=== PATIENT | female | born 1995 | race Caucasian/White ===

== ENCOUNTER 2016-11-28 15:05 | Emergency (ER) | payer SELFPAY ==
[~2016-11-28 15:05] MED LIST: BACT800T5 PO
[2016-11-28 15:07] VITALS: BP 116/80; PULSE 80; RESP 12; TEMP 98.4; O2SAT 95
[2016-11-28 17:06] VITALS: BP 113/61; PULSE 67; RESP 16; O2SAT 99
--- NOTE | 2016-11-28 17:06 | PD ---
HPI Chief Complaint: GI Complaint Time Seen by Provider: 17:05 Travel History International Travel<30 days: No Contact w/Intl Traveler<30days: No Traveled to known affect area: No History of Present Illness HPI 21-year-old female presents to the ED for evaluation of 3 day history of malaise , subjective fevers, sinus congestion, sore throat, nonproductive cough, nausea , vomiting, lower abdominal pain, diarrhea and back pain. Onset gradual. She endorses "too many to count" episodes of vomiting. She denies hematemesis, hematochezia, melena. Patient denies dysuria, hematuria, vaginal discharge. Last menstrual period 11/03. Patient denies risk of . She's been treating with NyQuil with only minor improvement of symptoms. She denies chronic health problems, takes no daily medications. NKDA. PFSH Past Medical History Asthma: Yes Diminished Hearing: No Immunizations Current: Yes Tetanus Vaccination: < 5 Years Influenza Vaccination: No ?: Not LMP: 11/03/16 : 1 Para: 0 Miscarriage: 0 : 1 Social History Alcohol Use: No Tobacco Use: Yes (3 CIGARRETTE PER DAY ) Substance Use: No Allergies-Medications (Allergen,Severity, Reaction): Coded Allergies: Bee Sting (Verified Allergy, Severe, ANAPHYLAXIS, 11/28/16) anaphylaxis Bees (Verified Allergy, Severe, THROAT SWELLS, 11/28/16) Gluten (Verified Allergy, Severe, THROAT SWELLS, 11/28/16) Wheat (Verified Allergy, Severe, AIRWAY ISSUES, 11/28/16) breathing probs Reported Meds & Prescriptions Reported Meds & Active Scripts Active No Active Prescriptions or Reported Medications Review of Systems Except as stated in HPI: all other systems reviewed are Neg Physical Exam Narrative GENERAL: Well-nourished, well-developed ill-appearing white female in no acute distress. SKIN: Warm and dry. HEAD: Normocephalic. Atraumatic. EYES: No scleral icterus. No injection or drainage. PERRLA. EOMI. ENT: Pearly deleon tympanic membranes bilaterally. Nasal mucosa is moist. Oropharynx without erythema, edema or exudate. NECK: Supple, trachea midline. No JVD or lymphadenopathy. CARDIOVASCULAR: Regular rate and rhythm without murmurs, gallops, or rubs. 2+ DP and radial pulses bilaterally. RESPIRATORY: Breath sounds clear and equal bilaterally. No accessory muscle use. GASTROINTESTINAL: Abdomen soft, non-tender. + Bowel sounds . Mild suprapubic tenderness to palpation. GENITOURINARY: Normal external genitalia without lesions or erythema. Vaginal vault without blood or drainage. Cervical os was closed without drainage. No cervical motion tenderness. Uterus nontender and nonenlarged. Right-sided adnexa mildly tender. No palpable masses. MUSCULOSKELETAL: No cyanosis, or edema. The patient is ambulatory and moves the extremities spontaneously. BACK: Nontender without obvious deformity. + Bilateral CVA tenderness, right greater than left. Data Data Last Documented VS Vital Signs Date Time Temp Pulse Resp B/P Pulse Ox O2 Delivery O2 Flow Rate FiO2 11/28/16 17:30 17 99 Room Air 11/28/16 17:06 67 113/61 11/28/16 15:07 98.4 Orders Complete Blood Count With Diff (11/28/16 17:27) Comprehensive Metabolic Panel (11/28/16 17:27) Lipase (11/28/16 17:27) Urinalysis - C+S If Indicated (11/28/16 17:27) Iv Access Insert/Monitor (11/28/16 17:27) Ecg Monitoring (11/28/16 17:27) Oximetry (11/28/16 17:27) Ondansetron Inj (Zofran Inj) (11/28/16 17:30) Sodium Chlor 0.9% 1000 Ml Inj (Ns 1000 M (11/28/16 17:27) Sodium Chloride 0.9% Flush (Ns Flush) (11/28/16 17:30) Ed Urine Pregnancytest Poc (11/28/16 17:27) Influenzae A/B Antigen (11/28/16 17:27) Beta Hcg (Quant/Titer) (11/28/16 17:56) Us Pelvis (Ques Pr/Ect)W Trans (11/28/16 18:09) Complete Rh (11/28/16 19:58) Labs Laboratory Tests Test 11/28/16 11/28/16 15:38 17:30 White Blood Count 7.0 TH/MM3 Red Blood Count 4.92 MIL/MM3 Hemoglobin 12.0 GM/DL Hematocrit 37.1 % Mean Corpuscular Volume 75.5 FL Mean Corpuscular Hemoglobin 24.4 PG Mean Corpuscular Hemoglobin 32.4 % Concent Red Cell Distribution Width 18.8 % Platelet Count 237 TH/MM3 Mean Platelet Volume 8.5 FL Neutrophils (%) (Auto) 50.3 % Lymphocytes (%) (Auto) 36.7 % Monocytes (%) (Auto) 9.9 % Eosinophils (%) (Auto) 2.7 % Basophils (%) (Auto) 0.4 % Neutrophils # (Auto) 3.5 TH/MM3 Lymphocytes # (Auto) 2.6 TH/MM3 Monocytes # (Auto) 0.7 TH/MM3 Eosinophils # (Auto) 0.2 TH/MM3 Basophils # (Auto) 0.0 TH/MM3 CBC Comment DIFF FINAL Differential Comment Sodium Level 137 MEQ/L Potassium Level 4.2 MEQ/L Chloride Level 104 MEQ/L Carbon Dioxide Level 26.1 MEQ/L Anion Gap 7 MEQ/L Blood Urea Nitrogen 13 MG/DL Creatinine 0.62 MG/DL Estimat Glomerular Filtration 119 ML/MIN Rate Random Glucose 85 MG/DL Calcium Level 8.6 MG/DL Total Bilirubin 0.4 MG/DL Aspartate Amino Transf 12 U/L (AST/SGOT) Alanine Aminotransferase 19 U/L (ALT/SGPT) Alkaline Phosphatase 58 U/L Total Protein 8.1 GM/DL Albumin 3.7 GM/DL Lipase 125 U/L Human Chorionic Gonadotropin, 403 MIU/ML Quant Urine Color YELLOW Urine Turbidity HAZY Urine pH 6.0 Urine Specific [place] 1.029 Urine Protein TRACE mg/dL Urine Glucose (UA) NEG mg/dL Urine Ketones NEG mg/dL Urine Occult Blood NEG Urine Nitrite NEG Urine Bilirubin NEG Urine Urobilinogen LESS THAN 2.0 MG/DL Urine Leukocyte Esterase SMALL Urine RBC 10 /hpf Urine WBC 5 /hpf Urine Squamous Epithelial 10 /hpf Cells Urine Mucus MANY /lpf Microscopic Urinalysis Comment CULT NOT INDICATED MDM Medical Decision Making Medical Screen Exam Complete: Yes Emergency Medical Condition: Yes Differential Diagnosis Influenza versus viral syndrome versus gastroenteritis versus versus ectopic versus STI versus other Narrative Course 21-year-old female presents to the ED for evaluation of 3 day history of malaise , subjective fevers, sinus congestion, sore throat, nonproductive cough, nausea , vomiting, lower abdominal pain, diarrhea and back pain. Onset gradual. She endorses "too many to count" episodes of vomiting. She denies hematemesis, hematochezia, melena. Patient denies dysuria, hematuria, vaginal discharge. Last menstrual period 11/03. Patient denies risk of . Vitals reviewed and within normal limits. Physical exam reveals an ill-appearing white female in no acute distress. ENT exam is unremarkable. Chest is clear to auscultation bilaterally. Abdomen soft, tender to palpation in the suprapubic region. There is positive bilateral CVA tenderness, right greater than left. No blood in the vaginal vault. No cervical motion tenderness. Mild right- sided adnexal tenderness. Patient was placed on continuous monitoring. She was administered a liter of normal saline, IV Zofran. CBC: WBC 7.0. Hemoglobin 12.0. CMP: Unremarkable Lipase: 125 Influenza: Negative UA: No culture indicated Urine test POSITIVE. Beta hC Transvaginal ultrasound: 1. No IUP seen. 2. 2 cm complex cystic mass the left ovary. This is nonspecific. It could be a prominent follicle or a corpus luteal cyst. An ectopic cannot be excluded. Close followup is recommended. On recheck the patient states that her nausea has resolved. Patient states that she thinks her blood type is O+. Rh ordered and pending. I discussed the results of the workup with the patient. I explained to the patient that she has a very early , too early to confirm that it is inside the uterus. I counseled her that ectopic can be life-threatening. I instructed the patient to return to the ED in 2 days for repeat hCG and ultrasound, sooner if her abdominal pain worsens or if vaginal bleeding occurs. I provided the patient with an excuse for work so that she may return for repeat testing. She indicated understanding of the instructions, she is amenable to plan of care. She is stable and discharged home. Diagnosis Primary Impression: at early stage Referrals: Foster Leger MD Patient Instructions: Abdominal Pain in (ED), General Instructions Additional Instructions: Rest, hydrate. Eat small meals at regular intervals. You are in the very early stages of . Establish care with a training program assistant as soon as possible. Return to the ED in 2 days for redraw of labs and ultrasound. Return sooner if your abdominal pain increases or if you have vaginal spotting of bleeding. Scripts No Active Prescriptions or Reported Meds Disposition: DISCHARGE HOME Condition: Stable Karla Anderson Nov 28, 2016 17:06
[2016-11-28] MEDS ORDERED: SODIUM CHLOR 0.9% 1000 ML INJ 1,000 ML IV SCH (17:27)
[2016-11-28 17:30] VITALS: RESP 17; O2SAT 99
[2016-11-28] MEDS ORDERED: ONDANSETRON HCL 4 MG/2 ML VIAL IVP ONE (17:30)
[2016-11-28] MEDS ORDERED: SODIUM CHLORIDE 0.9% FLUSH 5 ML FLUSH IVF PRN (17:30)
[2016-11-28 17:54] LABS: AUTOMATED NEUTROPHIL # 3.5 TH/MM3 (1.8-7.7); BASOPHIL % 0.4 % (0.0-2.0); EOSINOPHIL # 0.2 TH/MM3 (0-0.4); EOSINOPHIL % 2.7 % (0.0-4.0); HEMATOCRIT 37.1 % (35.0-46.0); LYMPH % 36.7 % (9.0-44.0); LYMPHOCYTE # 2.6 TH/MM3 (1.0-4.8); MEAN CELL VOLUME 75.5 FL (80.0-100.0); MEAN CORPUSCULAR HEMOGLOBIN 24.4 PG (27.0-34.0); MEAN CORPUSCULAR HGB CONC 32.4 % (32.0-36.0); MONO % 9.9 % (0.0-8.0); NEUT % 50.3 % (16.0-70.0); PLATELET COUNT 237 TH/MM3 (150-450); RED BLOOD COUNT 4.92 MIL/MM3 (4.00-5.30); RED CELL DISTRIBUTION WIDTH 18.8 % (11.6-17.2)
[2016-11-28 17:56] LABS: HEMO FLAGS DIFF FINAL
[2016-11-28 17:59] LABS: BLOOD, URINE NEG (NEG); COMMENT (UR) CULT NOT INDICATED; CULTURE IF INDICATED CULT NOT INDICATED; GLUCOSE,URINE NEG (NEG); KETONE, URINE NEG (NEG); MUCUS URINE MANY /lpf (OCC); NITRITE,URINE NEG (NEG); SQUAMOUS EPITHELIAL CELL URINE 10 /hpf (0-5); URINE COLOR YELLOW (YELLW/STRAW)
[2016-11-28 18:21] LABS: ANION GAP 7 MEQ/L (5-15); AST (GOT) 12 U/L (15-37); BICARBONATE 26.1 MEQ/L (21.0-32.0); BLOOD UREA NITROGEN 13 MG/DL (7-18); CHLORIDE 104 MEQ/L (98-107); GLOMERULAR FILTRATION RATE 119 ML/MIN (>89); POTASSIUM 4.2 MEQ/L (3.5-5.1); SODIUM (NA) 137 MEQ/L (136-145)
[2016-11-28 18:24] LABS: ALKALINE PHOSPHATASE 58 U/L (45-117); ALT (GPT) 19 U/L (10-53); TOTAL BILIRUBIN ADULT 0.4 MG/DL (0.2-1.0)
[2016-11-28 19:05] LABS: BETA HCG QUANT 403 MIU/ML (0-5)
--- NOTE | 2016-11-28 19:51 | RADRPT ---
EXAM DATE/TIME: 11/28/2016 18:12 [facility] COMPARISON: No previous studies available for comparison. INDICATIONS : Vomiting. LAB(S): Beta-hC MEDICAL HISTORY : . History of chlamydia. Asthma. Headache. Vomiting. SURGICAL HISTORY : None. ENCOUNTER: Subsequent ACUITY: 1 day PAIN SCORE: 0/10 LOCATION: Bilateral pelvis MEASUREMENTS: UTERUS: 8.0 x 4.3 x cm ENDOMETRIAL STRIPE: 20 mm RIGHT OVARY: 3.8 x 1.9 x 1.9 cm LEFT OVARY: 3.6 x 2.4 x 3.4 cm FINDINGS: UTERUS: The myometrium has homogeneous echotexture without mass. The endometrium appears thickened. No IUP i s seen. RIGHT OVARY: Ovary contains no mass or significant cystic lesion. LEFT OVARY: There is a 1.8 x 2.0 x 1.4 cm complex predominantly cystic mass seen. MISCELLANEOUS: There is minimal free fluid. CONCLUSION: 1. No IUP seen. 2. 2 cm complex cystic mass the left ovary. This is nonspecific. It could be a prominent follicle or a corpus luteal cyst. An ectopic cannot be excluded. Close Followup is recommended. South Jiang MD on November 28, 2016 at 19:47 Board Certified Radiologist. This report was verified electronically.
[2016-11-28 20:20] VITALS: BP 118/78
== END 2016-11-28 20:24 | disposition home or self-care (01) ==
LOC: NEPE 15:05
DX: O26.891 Other specified pregnancy related conditions, first trimester (principal); R10.30 Lower abdominal pain, unspecified; R19.7 Diarrhea, unspecified; J02.9 Acute pharyngitis, unspecified; Z3A.00 Weeks of gestation of pregnancy not specified
CPT/HCPCS: 76700; 76817; 80053; 81001; 83690; 84702; 84703; 85025; 86901; 87804; 96361; 96374; 99284; J2405; J7030

== ENCOUNTER 2016-11-30 14:57 | Emergency (ER) | payer SELFPAY ==
[2016-11-30 14:58] VITALS: BP 105/62; PULSE 87; RESP 14; TEMP 98.4; O2SAT 98
[2016-11-30 16:16] LABS: AUTOMATED NEUTROPHIL # 3.4 TH/MM3 (1.8-7.7); BASOPHIL % 0.4 % (0.0-2.0); EOSINOPHIL # 0.2 TH/MM3 (0-0.4); EOSINOPHIL % 2.8 % (0.0-4.0); HEMATOCRIT 37.1 % (35.0-46.0); LYMPH % 37.2 % (9.0-44.0); LYMPHOCYTE # 2.6 TH/MM3 (1.0-4.8); MEAN CELL VOLUME 75.5 FL (80.0-100.0); MEAN CORPUSCULAR HEMOGLOBIN 25.1 PG (27.0-34.0); MEAN CORPUSCULAR HGB CONC 33.2 % (32.0-36.0); MONO % 9.7 % (0.0-8.0); NEUT % 49.9 % (16.0-70.0); PLATELET COUNT 251 TH/MM3 (150-450); RED BLOOD COUNT 4.92 MIL/MM3 (4.00-5.30); RED CELL DISTRIBUTION WIDTH 18.5 % (11.6-17.2); WHITE BLOOD COUNT 6.9 TH/MM3 (4.0-11.0)
[2016-11-30 16:17] LABS: HEMO FLAGS AUTO DIFF
[2016-11-30 16:21] LABS: BLOOD, URINE NEG (NEG); COMMENT (UR) CULT NOT INDICATED; CULTURE IF INDICATED CULT NOT INDICATED; GLUCOSE,URINE NEG (NEG); KETONE, URINE NEG (NEG); NITRITE,URINE NEG (NEG); PH, URINE 6.5 (5.0-8.5); SQUAMOUS EPITHELIAL CELL URINE 5 /hpf (0-5); URINE COLOR YELLOW (YELLW/STRAW)
[2016-11-30 16:35] LABS: ANION GAP 8 MEQ/L (5-15); AST (GOT) 13 U/L (15-37); BICARBONATE 24.1 MEQ/L (21.0-32.0); BLOOD UREA NITROGEN 11 MG/DL (7-18); CHLORIDE 102 MEQ/L (98-107); GLOMERULAR FILTRATION RATE 92 ML/MIN (>89); POTASSIUM 4.5 MEQ/L (3.5-5.1); SODIUM (NA) 134 MEQ/L (136-145)
[2016-11-30 16:53] LABS: ALKALINE PHOSPHATASE 61 U/L (45-117); ALT (GPT) 18 U/L (10-53); BETA HCG QUANT 925 MIU/ML (0-5); TOTAL BILIRUBIN ADULT 0.3 MG/DL (0.2-1.0)
[2016-11-30 16:55] LABS: SCAN/DIFF AUTO DIFF CONFIRMED
[2016-11-30 16:56] LABS: OVALOCYTES 1+ (NORMAL); PLATELET ESTIMATE SMEAR NORMAL (NORMAL); PLATELET MORPHOLOGY NORMAL (NORMAL)
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
[2016-11-30 23:09] LABS: CHLAMYDIA PCR NOT DETECTED (NOT DETECT); NEISSERIA PCR NOT DETECTED (NOT DETECT)
== END 2016-12-01 02:06 | disposition home or self-care (01) ==
LOC: NETRI 14:57
DX: O26.891 Other specified pregnancy related conditions, first trimester (principal); Z3A.00 Weeks of gestation of pregnancy not specified
CPT/HCPCS: 76700; 76817; 80053; 81001; 84702; 85025; 86850; 86900; 86901; 87210; 87491; 87591

== ENCOUNTER 2017-05-30 07:55 | Emergency (ER) | payer SELFPAY ==
[2017-05-30 08:00] VITALS: BP 118/91; PULSE 76; RESP 16; TEMP 98.4; O2SAT 97
[2017-05-30] MEDS ORDERED: SODIUM CHLOR 0.9% 1000 ML INJ 1,000 ML IV ONE (08:07)
[2017-05-30 08:10] VITALS: O2SAT 98
[2017-05-30] MEDS ORDERED: METOCLOPRAMIDE HCL 10 MG/2 ML VIAL IVP ONE (08:15)
[2017-05-30] MEDS ORDERED: diphenhydrAMINE HCL 50 MG/ML VIAL IVP ONE (08:15)
[2017-05-30] MEDS ORDERED: SODIUM CHLORIDE 0.9% FLUSH 10 ML FLUSH IVF PRN (08:15)
--- NOTE | 2017-05-30 08:15 | PD ---
HPI Chief Complaint: Syncope/Near-Syncope Time Seen by Provider: 08:07 Travel History International Travel<30 days: No Contact w/Intl Traveler<30days: No Traveled to known affect area: No History of Present Illness HPI 22-year-old female with history of no significant past medical issues, presents to the ER today because of headaches that have been going on for several days, nausea, dizziness for the past week. She states that her headache is currently a 4 out of 10 but she states that she has had history of previous migraines. She denies any fevers, abdominal pains, diarrhea, or any other symptoms. She states that she did not eat anything today, did not drink very much today and when she got to work had a headache, became dizzy, and had a syncopal episode. She denies any previous history of syncopal episodes. Patient apparently had bradycardia rate of 30 when EMS initially got there, they had given her dose of atropine. Modifying Factors: None Associated Signs & Symptoms: Headaches, dizziness, syncope Risk Factors: History of migraine headaches PFSH Past Medical History Asthma: Yes Diminished Hearing: No Respiratory: Yes Immunizations Current: Yes ?: Not : 1 Para: 0 Miscarriage: 0 : 1 Social History Alcohol Use: No Tobacco Use: Yes (3 CIGARRETTE PER DAY ) Substance Use: No Allergies-Medications (Allergen,Severity, Reaction): Coded Allergies: bee venom protein (honey bee) (Unverified Allergy, Severe, ANAPHYLAXIS, ) anaphylaxis gluten (Unverified Allergy, Severe, THROAT SWELLS, 05/30/17) wheat (Unverified Allergy, Severe, AIRWAY ISSUES, 05/30/17) breathing probs Reported Meds & Prescriptions Reported Meds & Active Scripts Active No Active Prescriptions or Reported Medications Review of Systems Except as stated in HPI: all other systems reviewed are Neg Physical Exam Narrative GENERAL: Well-developed young white female patient currently in mild distress. Awake and oriented 3. SKIN: Focused skin assessment warm/dry. HEAD: Atraumatic. Normocephalic. EYES: Pupils equal and round. No scleral icterus. No injection or drainage. ENT: No nasal bleeding or discharge. Mucous membranes pink and moist. NECK: Trachea midline. No JVD. CARDIOVASCULAR: Regular rate and rhythm. No murmur appreciated. RESPIRATORY: No accessory muscle use. Clear to auscultation. Breath sounds equal bilaterally. GASTROINTESTINAL: Abdomen soft, non-tender, nondistended. Hepatic and splenic margins not palpable. MUSCULOSKELETAL: No obvious deformities. No clubbing. No cyanosis. No edema. NEUROLOGICAL: Awake and alert. No obvious cranial nerve deficits. Motor grossly within normal limits. Normal speech. PSYCHIATRIC: Appropriate mood and affect; insight and judgment normal. Data Data Last Documented VS Vital Signs Date Time Temp Pulse Resp B/P Pulse Ox O2 Delivery O2 Flow Rate FiO2 05/30/17 08:10 98 Room Air 05/30/17 08:00 98.4 76 16 118/91 Orders Complete Blood Count With Diff (05/30/17 08:07) Comprehensive Metabolic Panel (05/30/17 08:07) Ecg Monitoring (05/30/17 08:07) Iv Access Insert/Monitor (05/30/17 08:07) Oximetry (05/30/17 08:07) Sodium Chloride 0.9% Flush (Ns Flush) (05/30/17 08:15) Diphenhydramine Inj (Benadryl Inj) (05/30/17 08:15) Metoclopramide Inj (Reglan Inj) (05/30/17 08:15) Sodium Chlor 0.9% 1000 Ml Inj (Ns 1000 M (05/30/17 08:07) Ed Urine Pregnancytest Poc (05/30/17 08:07) Mandatory Outpatient Referral (05/30/17 09:08) Labs Laboratory Tests Test 05/30/17 08:15 White Blood Count 4.3 TH/MM3 Red Blood Count 4.49 MIL/MM3 Hemoglobin 12.3 GM/DL Hematocrit 37.2 % Mean Corpuscular Volume 82.8 FL Mean Corpuscular Hemoglobin 27.4 PG Mean Corpuscular Hemoglobin 33.1 % Concent Red Cell Distribution Width 17.0 % Platelet Count 177 TH/MM3 Mean Platelet Volume 9.6 FL Neutrophils (%) (Auto) 38.9 % Lymphocytes (%) (Auto) 42.4 % Monocytes (%) (Auto) 11.8 % Eosinophils (%) (Auto) 6.3 % Basophils (%) (Auto) 0.6 % Neutrophils # (Auto) 1.7 TH/MM3 Lymphocytes # (Auto) 1.8 TH/MM3 Monocytes # (Auto) 0.5 TH/MM3 Eosinophils # (Auto) 0.3 TH/MM3 Basophils # (Auto) 0.0 TH/MM3 CBC Comment DIFF FINAL Differential Comment Sodium Level 140 MEQ/L Potassium Level 3.9 MEQ/L Chloride Level 107 MEQ/L Carbon Dioxide Level 27.1 MEQ/L Anion Gap 6 MEQ/L Blood Urea Nitrogen 13 MG/DL Creatinine 0.82 MG/DL Estimat Glomerular Filtration 86 ML/MIN Rate Random Glucose 94 MG/DL Calcium Level 8.0 MG/DL Total Bilirubin 0.6 MG/DL Aspartate Amino Transf 13 U/L (AST/SGOT) Alanine Aminotransferase 15 U/L (ALT/SGPT) Alkaline Phosphatase 54 U/L Total Protein 7.3 GM/DL Albumin 3.4 GM/DL MDM Medical Decision Making Medical Screen Exam Complete: Yes Emergency Medical Condition: Yes Medical Record Reviewed: Yes Interpretation(s) EKG shows normal sinus rhythm at a rate of 74 bpm with no acute ST elevations or depressions. There are no signs of significant QT prolongation. Laboratory Tests Test 05/30/17 08:15 Monocytes (%) (Auto) 11.8 % (0.0-8.0) Eosinophils (%) (Auto) 6.3 % (0.0-4.0) Neutrophils # (Auto) 1.7 TH/MM3 (1.8-7.7) Estimat Glomerular Filtration 86 ML/MIN (>89) Rate Calcium Level 8.0 MG/DL (8.5-10.1) Aspartate Amino Transf 13 U/L (15-37) (AST/SGOT) Differential Diagnosis Syncopehypoglycemia versus metabolic issues versus arrhythmias versus dehydration Narrative Course EKG did not show any signs of dysrhythmias. Lab work did not show significant metabolic issues. Patient's vital signs are stable in the ER. She is not . It appears that she had not eaten or drank anything today in his suspect that she may have some underlying dehydration. However, patient did have an episode of bradycardia with EMS. At this point, my plan would be to release the patient with close follow-up to cardiology with mandatory consult. Return for any worsening in symptoms as necessary. The plan has discussed with her and she states understanding. Diagnosis Primary Impression: Syncope Additional Impression: Bradycardia Scripts No Active Prescriptions or Reported Meds Disposition: 01 DISCHARGE HOME Condition: Stable Massimo Mahoney MD May 30, 2017 08:15
[2017-05-30 08:32] LABS: AUTOMATED NEUTROPHIL # 1.7 TH/MM3 (1.8-7.7); BASOPHIL % 0.6 % (0.0-2.0); EOSINOPHIL # 0.3 TH/MM3 (0-0.4); EOSINOPHIL % 6.3 % (0.0-4.0); HEMATOCRIT 37.2 % (35.0-46.0); HEMO FLAGS DIFF FINAL; LYMPH % 42.4 % (9.0-44.0); LYMPHOCYTE # 1.8 TH/MM3 (1.0-4.8); MEAN CELL VOLUME 82.8 FL (80.0-100.0); MEAN CORPUSCULAR HEMOGLOBIN 27.4 PG (27.0-34.0); MEAN CORPUSCULAR HGB CONC 33.1 % (32.0-36.0); MONO % 11.8 % (0.0-8.0); NEUT % 38.9 % (16.0-70.0); PLATELET COUNT 177 TH/MM3 (150-450); RED BLOOD COUNT 4.49 MIL/MM3 (4.00-5.30); WHITE BLOOD COUNT 4.3 TH/MM3 (4.0-11.0)
[2017-05-30 08:48] LABS: ALT (GPT) 15 U/L (10-53); ANION GAP 6 MEQ/L (5-15); AST (GOT) 13 U/L (15-37); BICARBONATE 27.1 MEQ/L (21.0-32.0); BLOOD UREA NITROGEN 13 MG/DL (7-18); CHLORIDE 107 MEQ/L (98-107); GLOMERULAR FILTRATION RATE 86 ML/MIN (>89); POTASSIUM 3.9 MEQ/L (3.5-5.1); SODIUM (NA) 140 MEQ/L (136-145)
[2017-05-30 08:50] LABS: ALKALINE PHOSPHATASE 54 U/L (45-117); TOTAL BILIRUBIN ADULT 0.6 MG/DL (0.2-1.0)
--- NOTE | 2017-05-30 14:46 | EKG ---
Date Performed: 05/30/2017 Time Performed: 08:13:53 PTAGE: 22 years EKG: Sinus rhythm NORMAL ECG NO PREVIOUS TRACING DOCTOR: Clinton Matson Interpretating Date/Time 05/30/2017 14:45:24
== END 2017-05-30 09:43 | disposition home or self-care (01) ==
LOC: NEPE 07:55
DX: R55 Syncope and collapse (principal); R00.1 Bradycardia, unspecified
CPT/HCPCS: 80053; 84703; 85025; 93005; 96361; 96374; 96375; 99284; J1200; J2765; J7030

== ENCOUNTER 2017-08-28 14:32 | Emergency (ER) | payer MEDICAID ==
[2017-08-28 14:35] VITALS: BP 118/67; PULSE 64; RESP 14; TEMP 98.3; O2SAT 100
[2017-08-28 15:41] LABS: AUTOMATED NEUTROPHIL # 4.7 TH/MM3 (1.8-7.7); BASOPHIL % 0.4 % (0.0-2.0); EOSINOPHIL # 0.3 TH/MM3 (0-0.4); EOSINOPHIL % 3.5 % (0.0-4.0); HEMATOCRIT 39.7 % (35.0-46.0); HEMO FLAGS DIFF FINAL; LYMPH % 31.6 % (9.0-44.0); LYMPHOCYTE # 2.6 TH/MM3 (1.0-4.8); MEAN CELL VOLUME 88.3 FL (80.0-100.0); MEAN CORPUSCULAR HEMOGLOBIN 29.5 PG (27.0-34.0); MEAN CORPUSCULAR HGB CONC 33.4 % (32.0-36.0); MONO % 8.2 % (0.0-8.0); NEUT % 56.3 % (16.0-70.0); PLATELET COUNT 225 TH/MM3 (150-450); RED BLOOD COUNT 4.49 MIL/MM3 (4.00-5.30); RED CELL DISTRIBUTION WIDTH 17.4 % (11.6-17.2); WHITE BLOOD COUNT 8.4 TH/MM3 (4.0-11.0)
[2017-08-28 15:56] LABS: BICARBONATE 25.1 MEQ/L (21.0-32.0)
[2017-08-28] MEDS ORDERED: FLINT2 CHEW (15:59)
--- NOTE | 2017-08-28 16:34 | PD ---
HPI Chief Complaint: Related Problem Time Seen by Provider: 16:33 Travel History International Travel<30 days: No Contact w/Intl Traveler<30days: No Traveled to known affect area: No History of Present Illness HPI 22-year-old female presents to emergency Department with complaint of abdominal cramping 3 weeks and vaginal bleeding that started today. Last menstrual period was sometime in June. Has had 2 positive home test. This is her fourth ; to light breath and one elective secondary to ectopic . Reports changing her pad every 3 hours. Denies abnormal vaginal discharge or odor. Denies fever, chills. Reports nausea with vomiting in the mornings. Denies dysuria. Reports abdominal cramping at 10/10. No known aggravating or relieving factors. Has not taken any medications or tried any treatments to alleviate her symptoms. History of asthma. Has not seen an bio medical technician and does not have one to follow-up with. No established primary care provider. Allergies to bees and whole wheat. Has no other medical complaints. No other modifying factors or associated signs and symptoms. PFSH Past Medical History Anemia: Yes Asthma: Yes Diminished Hearing: No Respiratory: Yes Immunizations Current: Yes ?: LMP: 06/2017 : 1 Para: 0 Miscarriage: 0 : 1 Dilation and Curettage (D&C): Yes Social History Alcohol Use: No Tobacco Use: Yes (3 CIGARETTE PER DAY ) Substance Use: Yes (marijuana) Allergies-Medications (Allergen,Severity, Reaction): Coded Allergies: bee venom protein (honey bee) (Unverified Allergy, Severe, ANAPHYLAXIS, ) anaphylaxis gluten (Unverified Allergy, Severe, THROAT SWELLS, 05/30/17) wheat (Unverified Allergy, Severe, AIRWAY ISSUES, 05/30/17) breathing probs Reported Meds & Prescriptions Reported Meds & Active Scripts Active Acyclovir 200 Mg Cap 200 Mg PO 5 TIMES A DAY 10 Days Reported Flintstones Complete (Iron/Minerals/Multivitamins) 60 Mg Tab 1 Tab CHEW DAILY Review of Systems Except as stated in HPI: all other systems reviewed are Neg Physical Exam Narrative GENERAL: Well-nourished, well-developed female female patient, in no acute distress; afebrile, nontoxic-appearing SKIN: Warm and dry. HEAD: Atraumatic. Normocephalic. EYES: Pupils equal and round. No scleral icterus. No injection or drainage. ENT: Mucous membranes pink and moist. NECK: Trachea midline. No lymphadenopathy. CARDIOVASCULAR: Regular rate and rhythm. No murmur appreciated. RESPIRATORY: No accessory muscle use. Clear to auscultation. Breath sounds equal bilaterally. GASTROINTESTINAL: Abdomen soft, non-tender, nondistended. Bilateral pelvic region tender to palpation. Hepatic and splenic margins not palpable. No guarding, rigidity, rebound tenderness. No groin lymphadenopathy. PELVIC: Exam done in the presence of a nurse. Speculum exam reveals edematous and erythematous cervix with creamy, white mucopurulent, nonodorous discharge. Bimanual exam reveals no palpable masses or adnexa tenderness, no uterine tenderness. No cervical motion tenderness. Cervical os is closed and there is no blood noted in the vaginal vault or coming from the cervical os. Erythemic, vesicular area noted to the right labia majora that is with tenderness on palpation. BACK: No CVA tenderness. MUSCULOSKELETAL: No obvious deformities. No clubbing. No cyanosis. No edema. NEUROLOGICAL: Awake and alert. No obvious cranial nerve deficits. Motor grossly within normal limits. Normal speech. PSYCHIATRIC: Appropriate mood and affect; insight and judgment normal. Data Data Last Documented VS Vital Signs Date Time Temp Pulse Resp B/P (MAP) Pulse Ox O2 Delivery O2 Flow Rate FiO2 08/28/17 14:35 98.3 64 14 118/67 (84) 100 Orders Orders Complete Blood Count With Diff (08/28/17 14:58) Basic Metabolic Panel (Bmp) (08/28/17 14:58) Beta Hcg (Quant/Titer) (08/28/17 14:58) Ed Urine Pregnancytest Poc (08/28/17 14:58) Urinalysis - C+S If Indicated (08/28/17 16:32) Gc And Chlamydia Pcr (08/28/17 16:37) Wet Prep Profile (08/28/17 16:37) Acetaminophen (Tylenol) (08/28/17 16:45) Heart Tones (08/28/17 17:16) Herpes Simplex Virus Culture (08/28/17 17:35) Ceftriaxone Inj (Rocephin Inj) (08/28/17 17:45) Lidocaine 1% Inj (50 Ml) (Xylocaine 1% I (08/28/17 17:45) Azithromycin (Zithromax) (08/28/17 17:45) Ondansetron Odt (Zofran Odt) (08/28/17 17:45) Ed Discharge Order (08/28/17 18:18) Labs Laboratory Tests Test 08/28/17 15:15 08/28/17 17:30 08/28/17 17:40 White Blood Count 8.4 TH/MM3 Red Blood Count 4.49 MIL/MM3 Hemoglobin 13.2 GM/DL Hematocrit 39.7 % Mean Corpuscular Volume 88.3 FL Mean Corpuscular Hemoglobin 29.5 PG Mean Corpuscular Hemoglobin Concent 33.4 % Red Cell Distribution Width 17.4 % Platelet Count 225 TH/MM3 Mean Platelet Volume 8.4 FL Neutrophils (%) (Auto) 56.3 % Lymphocytes (%) (Auto) 31.6 % Monocytes (%) (Auto) 8.2 % Eosinophils (%) (Auto) 3.5 % Basophils (%) (Auto) 0.4 % Neutrophils # (Auto) 4.7 TH/MM3 Lymphocytes # (Auto) 2.6 TH/MM3 Monocytes # (Auto) 0.7 TH/MM3 Eosinophils # (Auto) 0.3 TH/MM3 Basophils # (Auto) 0.0 TH/MM3 CBC Comment DIFF FINAL Differential Comment Blood Urea Nitrogen 7 MG/DL Creatinine 0.46 MG/DL Random Glucose 87 MG/DL Calcium Level 8.8 MG/DL Sodium Level 136 MEQ/L Potassium Level 4.0 MEQ/L Chloride Level 105 MEQ/L Carbon Dioxide Level 25.1 MEQ/L Anion Gap 6 MEQ/L Estimat Glomerular Filtration Rate 167 ML/MIN Human Chorionic Gonadotropin, Quant 25181 MIU/ML Clue Cells (Wet Prep) NONE SEEN Vaginal Trichomonas (Wet Prep) NONE SEEN Vaginal Yeast (Wet Prep) NONE SEEN Urine Color YELLOW Urine Turbidity HAZY Urine pH 6.5 Urine Specific [place] 1.025 Urine Protein TRACE mg/dL Urine Glucose (UA) NEG mg/dL Urine Ketones NEG mg/dL Urine Occult Blood NEG Urine Nitrite NEG Urine Bilirubin NEG Urine Urobilinogen LESS THAN 2.0 MG/DL Urine Leukocyte Esterase TRACE Urine RBC LESS THAN 1 /hpf Urine WBC 3 /hpf Urine Squamous Epithelial Cells 5 /hpf Urine Bacteria OCC /hpf Urine Mucus FEW /lpf Microscopic Urinalysis Comment CULT NOT INDICATED [facility] Medical Decision Making Medical Screen Exam Complete: Yes Emergency Medical Condition: Yes Medical Record Reviewed: Yes Differential Diagnosis Miscarriage, threatened miscarriage, ectopic Narrative Course 22-year-old female presents with complaint of abdominal cramping 3 weeks with vaginal bleeding today. 4th . 1635: CBC and BMP unremarkable. Beta hCG 19259. 1707: turfgrass technician says there is a viable, intrauterine that is greater than 13 weeks, so formal ultrasound was not completed. heart tones ordered. 1732: Pelvic exam reveals a erythematous and edematous cervix with mucopurulent nonodorous discharge. No cervical motion tenderness. Cervical os is closed and I did not notice any blood in the vaginal vault or coming from the cervical os. Patient is concerned of exposure to STI. She states her boyfriend does cheat on her. I also noted a small erythematous, vesicular patch to the right labia majora with concern of genital herpes. HSV swab ordered. The patient will be treated empirically with azithromycin and Rocephin. 1813: Clue cells, Trichomonas, vaginal yeast negative. Urinalysis without signs of infection. Chlamydia and gonorrhea pending. Acyclovir prescribed for home. Patient to return to the emergency department in 48 hours for repeat hCG recheck. Instructed patient to follow up with bio medical technician. Instructed patient to follow up with primary care provider. Patient verbalizes understanding and agreement with treatment plan. Patient is medically cleared and stable for discharge. Discussed reasons to return to the emergency department. Patient agrees with treatment plan. The patients vital signs are stable and the patient is stable for outpatient follow-up and treatment. Patient discharged home, stable and in no acute distress. Diagnosis Primary Impression: Threatened miscarriage Additional Impressions: Cervicitis Vaginal lesion Referrals: Mechanical Assembly Technician Primary Care Physician Patient Instructions: Cervicitis (ED), General Instructions, Genital Herpes Simplex (ED), Threatened Miscarriage (ED) Additional Instructions: Tylenol as instructed nauseated for pain Return to the emergency department in 48 hours for beta hCG recheck Follow-up with bio medical technician Follow-up with primary care provider Return to the emergency department immediately with worsening of symptoms Med/Other Pt SpecificInfo: Prescription(s) given Scripts Acyclovir (Acyclovir) 200 Mg Cap 200 MG PO 5 TIMES A DAY for Mgmt Viral Infection for 10 Days, CAP 0 Refills Prov: Loretta Kapoor 08/28/17 Disposition: 01 DISCHARGE HOME Condition: Stable Loretta Kapoor Aug 28, 2017 16:34
[2017-08-28] MEDS ORDERED: ACETAMINOPHEN 325 MG TAB PO ONE (16:45)
[2017-08-28] MEDS ORDERED: AZITHROMYCIN 250 MG TAB PO ONE (17:45)
[2017-08-28] MEDS ORDERED: cefTRIAXone 250 MG VIAL IM ONE (17:45)
[2017-08-28] MEDS ORDERED: LIDOCAINE HCL 1% 50 ML VIAL IM ONE (17:45)
[2017-08-28] MEDS ORDERED: ONDANSETRON ODT 4 MG TAB PO ONE (17:45)
[2017-08-28 17:51] LABS: BACTERIA, URINE OCC /hpf; BLOOD, URINE NEG (NEG); COMMENT (UR) CULT NOT INDICATED; CULTURE IF INDICATED CULT NOT INDICATED; GLUCOSE,URINE NEG (NEG); KETONE, URINE NEG (NEG); MUCUS URINE FEW /lpf (OCC); NITRITE,URINE NEG (NEG); PH, URINE 6.5 (5.0-8.5); SQUAMOUS EPITHELIAL CELL URINE 5 /hpf (0-5); URINE COLOR YELLOW (YELLW/STRAW)
[2017-08-28] MEDS ORDERED: ACYC200C66 PO (18:17)
[2017-08-28 20:51] LABS: CHLAMYDIA PCR NOT DETECTED (NOT DETECT); NEISSERIA PCR NOT DETECTED (NOT DETECT)
== END 2017-08-28 18:45 | disposition home or self-care (01) ==
LOC: NEPD 14:32
DX: O20.0 Threatened abortion (principal); O23.511 Infections of cervix in pregnancy, first trimester; J45.909 Unspecified asthma, uncomplicated; O99.011 Anemia complicating pregnancy, first trimester; O99.331 Smoking (tobacco) complicating pregnancy, first trimester
CPT/HCPCS: 80048; 81001; 84702; 84703; 85025; 87210; 87255; 87491; 87591; 96372; 99284; J0696

== ENCOUNTER 2017-08-30 14:53 | Emergency (ER) | payer SELFPAY ==
[~2017-08-30] VITALS: Ht 157.5 cm; Wt 52.0 kg
[~2017-08-30 14:53] MED LIST changes: +ACYC200C66 PO; -BACT800T5 PO; +FLINT2 CHEW
[2017-08-30 14:54] VITALS: BP 123/73; PULSE 75; RESP 14; TEMP 98.7; O2SAT 100
--- NOTE | 2017-08-30 16:15 | PD ---
HPI . Chief Complaint: Related Problem Time Seen by Provider: 15:49 Travel History International Travel<30 days: No Contact w/Intl Traveler<30days: No Traveled to known affect area: No History of Present Illness HPI Patient presents stating that she needs to have her heart tones checked. She states that she was here 2 days ago with a threatened miscarriage and was told to return today to get the baby's heart rate checked again. She states that her bleeding and cramping have improved. She is also interested to know the results of her cultures. She admits that she has not yet seen an transport medic. She states that she needs proof of from us in order to be able to see an transport medic. [facility] Past Medical History Anemia: Yes Asthma: Yes Diminished Hearing: No Respiratory: Yes Immunizations Current: Yes Tetanus Vaccination: < 5 Years Influenza Vaccination: No ?: LMP: 05/2017 : 1 Para: 0 Miscarriage: 0 : 1 Dilation and Curettage (D&C): Yes Social History Alcohol Use: No Tobacco Use: Yes (3 CIGARETTE PER DAY ) Substance Use: Yes (marijuana) Allergies-Medications (Allergen,Severity, Reaction): Coded Allergies: bee venom protein (honey bee) (Unverified Allergy, Severe, ANAPHYLAXIS, ) anaphylaxis gluten (Unverified Allergy, Severe, THROAT SWELLS, 08/30/17) wheat (Unverified Allergy, Severe, AIRWAY ISSUES, 08/30/17) breathing probs Reported Meds & Prescriptions Reported Meds & Active Scripts Active No Active Prescriptions or Reported Medications Review of Systems Except as stated in HPI: all other systems reviewed are Neg Physical Exam Narrative GENERAL: Awake and alert and in no acute distress. SKIN: Warm and dry. HEAD: Normocephalic/atraumatic. EYES: Pupils are equal. Extraocular movements are intact. NECK: Normal range of motion. CARDIOVASCULAR: Regular rate and rhythm. RESPIRATORY: Nonlabored respirations. ABDOMEN: Soft and nontender. MUSCULOSKELETAL: Atraumatic. NEUROLOGICAL: Nonfocal. PSYCHIATRIC: Appropriate mood and affect. Data Data Last Documented VS Vital Signs Date Time Temp Pulse Resp B/P (MAP) Pulse Ox O2 Delivery O2 Flow Rate FiO2 08/30/17 14:54 98.7 75 14 123/73 (90) 100 Room Air Orders Orders Heart Tones (08/30/17 15:49) Ed Poc Ultrasound (08/30/17 16:02) [facility] Medical Decision Making Medical Screen Exam Complete: Yes Emergency Medical Condition: Yes Medical Record Reviewed: Yes (patient was seen here on 08/28. She had a quantitative hCG of 20 8. Ultrasound showed a viable IUP at greater than 13 weeks gestation. Her GC/chlamydial probe were negative. Herpes culture is pending.) Differential Diagnosis Differential diagnosis of pelvic pain includes but is not limited to UTI, PID, ectopic , spontaneous AB, constipation, viral illness Narrative Course Patient presents requesting recheck of heart rate. She was seen here 2 days ago for threatened AB. She was found to be greater than 13 weeks . She states that her symptoms have improved. Were unable to find the Doppler. Therefore, the ultrasound machine was used to check heart rate. Procedures Procedure Narrative Emergency Department Pelvic ultrasound was performed with patient consent. The curvilinear probe was used in the transverse and sagittal views within the suprapubic region revealing positive intrauterine . cardiac activity was present as was movement. Diagnosis Primary Impression: Second trimester Patient Instructions: Abdominal Pain in (ED), General Instructions Additional Instructions: Your quantitative hCG is 20K. Your GC/chlamydia test is negative. Your herpes culture is pending. Scripts No Active Prescriptions or Reported Meds Disposition: 01 DISCHARGE HOME Condition: Stable Nelly Bentley MD Aug 30, 2017 16:15
== END 2017-08-30 16:24 | disposition home or self-care (01) ==
LOC: NETRI 14:53
DX: O46.91 Antepartum hemorrhage, unspecified, first trimester (principal); O99.011 Anemia complicating pregnancy, first trimester; O99.511 Diseases of the respiratory system complicating pregnancy, first trimester; J45.909 Unspecified asthma, uncomplicated; O99.331 Smoking (tobacco) complicating pregnancy, first trimester; Z3A.13 13 weeks gestation of pregnancy

== ENCOUNTER 2017-09-12 13:27 | Emergency (ER) | payer MEDICAID ==
[~2017-09-12] VITALS: Ht 157.5 cm; Wt 54.5 kg
[2017-09-12 13:33] VITALS: BP 105/62; PULSE 77; RESP 16; TEMP 98.9; O2SAT 100
[2017-09-12 14:12] LABS: BASOPHIL % 0.4 % (0.0-2.0); EOSINOPHIL # 0.2 TH/MM3 (0-0.4); EOSINOPHIL % 2.8 % (0.0-4.0); HEMATOCRIT 33.2 % (35.0-46.0); HEMO FLAGS DIFF FINAL; LYMPH % 27.4 % (9.0-44.0); LYMPHOCYTE # 2.2 TH/MM3 (1.0-4.8); MEAN CELL VOLUME 88.5 FL (80.0-100.0); MEAN CORPUSCULAR HEMOGLOBIN 30.4 PG (27.0-34.0); MEAN CORPUSCULAR HGB CONC 34.3 % (32.0-36.0); NEUT % 61.4 % (16.0-70.0); PLATELET COUNT 196 TH/MM3 (150-450); RED BLOOD COUNT 3.75 MIL/MM3 (4.00-5.30); RED CELL DISTRIBUTION WIDTH 16.9 % (11.6-17.2); WHITE BLOOD COUNT 8.2 TH/MM3 (4.0-11.0)
[2017-09-12 14:23] LABS: BACTERIA, URINE RARE /hpf; BLOOD, URINE NEG (NEG); COMMENT (UR) CULT NOT INDICATED; CULTURE IF INDICATED CULT NOT INDICATED; GLUCOSE,URINE NEG (NEG); KETONE, URINE NEG (NEG); MUCUS URINE FEW /lpf (OCC); NITRITE,URINE NEG (NEG); PH, URINE 6.5 (5.0-8.5); SQUAMOUS EPITHELIAL CELL URINE 1 /hpf (0-5); URINE COLOR YELLOW (YELLW/STRAW)
[2017-09-12 14:29] VITALS: BP 102/62; PULSE 68; RESP 16; O2SAT 100
[2017-09-12 14:50] LABS: APTT (PATIENT) 26.4 SEC (24.3-30.1); INTERNATIONAL NORMALIZED RATIO 0.9 RATIO
--- NOTE | 2017-09-12 14:51 | PD ---
HPI Chief Complaint: GI Complaint Time Seen by Provider: 14:46 Travel History International Travel<30 days: No Contact w/Intl Traveler<30days: No Traveled to known affect area: No History of Present Illness HPI This patient was examined in the presence of a female nurse. 22-year-old presents for evaluation of abdominal pain and rectal bleeding. She has had lower abdominal pain, crampy, worse when walking or sitting up from a lying position, for the past few months. Today she had some rectal bleeding when wiping and this is what prompted evaluation. She endorses some rectal pain. She denies any vaginal bleeding, nausea or vomiting, diarrhea or constipation. The patient was seen here on August 28 and August 30 for evaluation of this abdominal pain. She had bedside ultrasound confirming and uterine . She believes that her last menstrual period Was April 14. She has not yet established care with an bottom stop attacher. Lab work was ordered in triage and is currently pending. [facility] Past Medical History Anemia: Yes Asthma: Yes Diminished Hearing: No Respiratory: Yes Immunizations Current: Yes ?: : 5 Para: 1 Miscarriage: 0 : 3 Dilation and Curettage (D&C): Yes Social History Alcohol Use: No Tobacco Use: Yes (3 CIGARETTE PER DAY ) Substance Use: Yes (marijuana) Allergies-Medications (Allergen,Severity, Reaction): Coded Allergies: bee venom protein (honey bee) (Unverified Allergy, Severe, ANAPHYLAXIS, ) anaphylaxis gluten (Unverified Allergy, Severe, THROAT SWELLS, 08/30/17) wheat (Unverified Allergy, Severe, AIRWAY ISSUES, 08/30/17) breathing probs Reported Meds & Prescriptions Reported Meds & Active Scripts Active Anusol-Hc Rectal (Hydrocortisone Rectal) 2.5% Cream 1 Applic RECTAL TID 7 Days Review of Systems Except as stated in HPI: all other systems reviewed are Neg Physical Exam Narrative GENERAL: Well-developed well-nourished female in no acute distress SKIN: Warm and dry. HEAD: Atraumatic. Normocephalic. EYES: Pupils equal and round. No scleral icterus. No injection or drainage. ENT: No nasal bleeding or discharge. Mucous membranes pink and moist. NECK: Trachea midline. No JVD. CARDIOVASCULAR: Regular rate and rhythm. No murmur appreciated. RESPIRATORY: No accessory muscle use. Clear to auscultation. Breath sounds equal bilaterally. GASTROINTESTINAL: Abdomen soft, gravid, tender to palpation lower quadrants. Rectal examination reveals external hemorrhoids. Bedside ultrasound confirms intrauterine with a heart tone of 130. MUSCULOSKELETAL: No obvious deformities. No clubbing. No cyanosis. No edema. NEUROLOGICAL: Awake and alert. No obvious cranial nerve deficits. Motor grossly within normal limits. Normal speech. PSYCHIATRIC: Appropriate mood and affect; insight and judgment normal. Data Data Last Documented VS Vital Signs Date Time Temp Pulse Resp B/P (MAP) Pulse Ox O2 Delivery O2 Flow Rate FiO2 09/12/17 14:29 68 16 102/62 (75) 100 Room Air 09/12/17 13:33 98.9 Orders Orders Complete Blood Count With Diff (09/12/17 13:43) Comprehensive Metabolic Panel (09/12/17 13:43) Prothrombin Time / Inr (Pt) (09/12/17 13:43) Act Partial Throm Time (Ptt) (09/12/17 13:43) Urinalysis - C+S If Indicated (09/12/17 13:43) Type And Screen (09/12/17 13:43) Beta Hcg (Quant/Titer) (09/12/17 13:43) Labs Laboratory Tests Test 09/12/17 13:46 09/12/17 14:00 White Blood Count 8.2 TH/MM3 Red Blood Count 3.75 MIL/MM3 Hemoglobin 11.4 GM/DL Hematocrit 33.2 % Mean Corpuscular Volume 88.5 FL Mean Corpuscular Hemoglobin 30.4 PG Mean Corpuscular Hemoglobin Concent 34.3 % Red Cell Distribution Width 16.9 % Platelet Count 196 TH/MM3 Mean Platelet Volume 8.2 FL Neutrophils (%) (Auto) 61.4 % Lymphocytes (%) (Auto) 27.4 % Monocytes (%) (Auto) 8.0 % Eosinophils (%) (Auto) 2.8 % Basophils (%) (Auto) 0.4 % Neutrophils # (Auto) 5.0 TH/MM3 Lymphocytes # (Auto) 2.2 TH/MM3 Monocytes # (Auto) 0.7 TH/MM3 Eosinophils # (Auto) 0.2 TH/MM3 Basophils # (Auto) 0.0 TH/MM3 CBC Comment DIFF FINAL Differential Comment Prothrombin Time 10.0 SEC Prothromb Time International Ratio 0.9 RATIO Activated Partial Thromboplast Time 26.4 SEC Blood Urea Nitrogen 5 MG/DL Creatinine 0.41 MG/DL Random Glucose 84 MG/DL Total Protein 7.3 GM/DL Albumin 3.0 GM/DL Calcium Level 8.3 MG/DL Alkaline Phosphatase 66 U/L Aspartate Amino Transf (AST/SGOT) 19 U/L Alanine Aminotransferase (ALT/SGPT) 15 U/L Total Bilirubin 0.2 MG/DL Sodium Level 136 MEQ/L Potassium Level 3.7 MEQ/L Chloride Level 104 MEQ/L Carbon Dioxide Level 24.1 MEQ/L Anion Gap 8 MEQ/L Estimat Glomerular Filtration Rate 191 ML/MIN Human Chorionic Gonadotropin, Quant 9499 MIU/ML Urine Color YELLOW Urine Turbidity HAZY Urine pH 6.5 Urine Specific Geraldine 1.020 Urine Protein NEG mg/dL Urine Glucose (UA) NEG mg/dL Urine Ketones NEG mg/dL Urine Occult Blood NEG Urine Nitrite NEG Urine Bilirubin NEG Urine Urobilinogen LESS THAN 2.0 MG/DL Urine Leukocyte Esterase NEG Urine RBC 1 /hpf Urine Squamous Epithelial Cells 1 /hpf Urine Amorphous Sediment FEW Urine Bacteria RARE /hpf Urine Mucus FEW /lpf Microscopic Urinalysis Comment CULT NOT INDICATED MDM Medical Decision Making Medical Screen Exam Complete: Yes Emergency Medical Condition: Yes Medical Record Reviewed: Yes Differential Diagnosis Intrauterine uterine , round ligament pain, contractions, pelvic inflammatory disease, ovarian torsion, ectopic Narrative Course Lab work was ordered in triage has been reviewed. Physical examination reveals external hemorrhoids, not currently bleeding. Discussed the importance of increasing fluid and fiber intake. The patient will be discharged with Anusol rectal cream, she will be transferred to OB ED. Diagnosis Primary Impression: Abdominal pain during Qualified Codes: O26.899 - Other specified related conditions, unspecified trimester; R10.9 - Unspecified abdominal pain Additional Impression: External hemorrhoid Referrals: Capacity Management Specialist Med/Other Pt SpecificInfo: No Change to Meds Scripts Hydrocortisone Rectal (Anusol-Hc Rectal) 2.5% Cream 1 APPLIC RECTAL TID for Pain Management for 7 Days, #30 GM 0 Refills Prov: Zeyad Mahoney MD 09/12/17 Disposition: 01 DISCHARGE HOME Condition: Stable Martin Argueta Sep 12, 2017 14:51
[2017-09-12] MEDS ORDERED: HYDR2.5%T RECTAL (14:59)
[2017-09-12 15:08] LABS: ALT (GPT) 15 U/L (10-53); AST (GOT) 19 U/L (15-37); BICARBONATE 24.1 MEQ/L (21.0-32.0); BLOOD UREA NITROGEN 5 MG/DL (7-18); GLOMERULAR FILTRATION RATE 191 ML/MIN (>89)
[2017-09-12 16:12] LABS: ALKALINE PHOSPHATASE 66 U/L (45-117); BETA HCG QUANT 9499 MIU/ML (0-5); TOTAL BILIRUBIN ADULT 0.2 MG/DL (0.2-1.0)
[2017-09-12 16:16] LABS: ANION GAP 8 MEQ/L (5-15); CHLORIDE 104 MEQ/L (98-107); SODIUM (NA) 136 MEQ/L (136-145)
[2017-09-12 16:22] LABS: POTASSIUM 3.7 MEQ/L (3.5-5.1)
== END 2017-09-12 16:56 | disposition home or self-care (01) ==
LOC: NEPC 13:27
DX: O22.40 Hemorrhoids in pregnancy, unspecified trimester (principal); O99.019 Anemia complicating pregnancy, unspecified trimester; O99.519 Diseases of the respiratory system complicating pregnancy, unspecified trimester; J45.909 Unspecified asthma, uncomplicated; O99.330 Smoking (tobacco) complicating pregnancy, unspecified trimester; Z34.90 Encounter for supervision of normal pregnancy, unspecified, unspecified trimester
CPT/HCPCS: 80053; 81001; 84702; 85025; 85610; 85730; 86850; 86900; 86901; 99284

== ENCOUNTER 2017-09-12 16:56 | Emergency (ER) | payer MEDICAID ==
[~2017-09-12 16:56] MED LIST changes: -ACYC200C66 PO; -FLINT2 CHEW; +HYDR2.5%T RECTAL
--- NOTE | 2017-09-12 17:45 | PD ---
HPI Chief Complaint Implants of lower abdominal pain mainly when she moves or turns not when she is lying still Date Seen: Sep 12, 2017 Time Seen: 17:35 Travel History International Travel<30 Days: No Contact w/Intl Traveler<30Days: No Known Affected Area: No History of Present Illness HPI Patient is 22-year-old white female a 3 who has no care to date except for several ER visits. She complains of lower abdominal pain for a month but mainly when she moves or turns now she is sitting still, she denies bleeding or leakage of fluid. No discharge. She does complain of some hemorrhoid pain. Weeks Gestation: 16 Para: 1 : 5 Last Menstrual Period: Sep 12, 2017 : 3 History Past Medical History Narrative Medical Negative medical history Obstetric History Obstetric History One vaginal delivery and 3 elective abortions Past Surgical History Narrative Surgical D&Cs for the abortions Social History Alcohol Use: No Tobacco Use: No Substance Abuse: No Allergies-Medications (Allergen,Severity, Reaction): Coded Allergies: bee venom protein (honey bee) (Unverified Allergy, Severe, ANAPHYLAXIS, ) anaphylaxis gluten (Unverified Allergy, Severe, THROAT SWELLS, 08/30/17) wheat (Unverified Allergy, Severe, AIRWAY ISSUES, 08/30/17) breathing probs Home Meds Active Scripts Hydrocortisone Rectal (Anusol-Hc Rectal) 2.5% Cream, 1 APPLIC RECTAL TID for Pain Management for 7 Days, #30 GM 0 Refills Prov:Zeyad Mahoney MD 09/12/17 Review of Systems General / Constitutional: No: Fever, Weight Gain, Chills, Other Eyes: No: Diploplia, Blurred Vision, Visual changes, Pain, Photophobia HENT: No: Headaches, Vertigo, Lightheadedness Cardiovascular: No: Irregular Rhythm, Chest Pain or Discomfort, Palpitations, Tachycardia, Syncope, Varicosities, Edema, Cyanosis Respiratory: No: Cough, Short of Breath, Other Gastrointestinal: Abdominal Pain, No: Nausea, Vomiting, Diarrhea Genitourinary: No: Decreased Urinary Output, Oliguria Musculoskeletal: No: Limited ROM, Weakness, Cramping, Edema, Pain Skin: No Rash, No Itching, No Dryness, No Lumps, No Change in Pigmentation, No Change in Nails, No Alopecia, No Lesions Neurologic: No: Weakness, Dizziness, Syncope, Focal Abnormalities, Coordination Problem, Headache, Slurred Speech, Seizures Psychiatric: No: Depression, Suicidal Ideations, Homicidal Ideation Endocrine: No: Heat Intolerance, Cold Intolerance, Polydipsia, Polyuria, Other Physical Exam Narrative GENERAL: Well-nourished, well-developed patient. SKIN: Warm and dry. HEAD: Normocephalic and atraumatic. EYES: No scleral icterus. No injection or drainage. ENT: No nasal drainage noted. Mucous membranes pink. Airway patent. NECK: Supple, trachea midline. No JVD. CARDIOVASCULAR: Regular rate and rhythm without murmurs, gallops, or rubs. RESPIRATORY: Breath sounds equal bilaterally. No accessory muscle use. BREASTS: Bilateral exam showed no masses , no retractions, no nipple discharge. ABDOMEN/GI: Abdomen soft, non-tender, bowel sounds present, no rebound, no guarding Gravid to [16-] weeks size Fundal Height: [16-] GENITOURINARY: External Genitalia: intact and normal in appearance + ext hemorrhoids Cervix: [-closed] Dilatation: [closed-] Effacement: [-0] Station: [-3] Presentation: [back down trans-] Membranes: [intact ] Uterine Contractions: [0-] FHT's: 130s EXTREMITIES: No cyanosis or edema. BACK: Nontender without obvious deformity. No CVA tenderness. NEUROLOGICAL: Awake and alert. Motor and sensory grossly within normal limits. Five out of 5 muscle strength in all muscle groups. Normal speech. Data Data Orders Orders Ob Poc Ultrasound (09/12/17 ) Attending Discharge Order (09/12/17 ) Labs Ultrasound done at the bedside by myself which showed a single intrauterine that is 16 weeks' size today giving an EDC of 02/27/18, is adequate amniotic fluid baby is very active there is a low-lying anterior placenta grade 0, cardiac motion noted normal anatomy scan. MDM Interpretation(s) 22-year-old white female A3 at 16 weeks gestation presents with lower abdominal pain with movement but otherwise is having no pain. this is likely round ligament pain this is explained to the patient. Also baby is very active , she was watching the baby move on the ultrasound she so that hurts that's for the babies kicking I can feel that and it hurts Plan The patient to be at bedrest if uncomfortable and Tylenol as needed and heating pad on the abdomen down low was fine. She can use an [id number] preparation for her hemorrhoids like hydrocortisone cream 1% Diagnosis Diagnosis: Primary Impression: Pain of round ligament during Additional Impressions: No care in current in second trimester 16 weeks gestation of Disposition: 01 DISCHARGE HOME Condition: Stable Tonio Sidhu II, MD Sep 12, 2017 17:45
== END 2017-09-12 18:46 | disposition home or self-care (01) ==
LOC: HOBED 16:56
DX: O26.892 Other specified pregnancy related conditions, second trimester (principal); R10.2 Pelvic and perineal pain; Z3A.16 16 weeks gestation of pregnancy
CPT/HCPCS: 76815

== ENCOUNTER 2018-01-04 22:06 | Emergency (ER) | payer MEDICAID, OTHER ==
[~2018-01-04] VITALS: Ht 160 cm; Wt 70.0 kg
[2018-01-04 22:11] VITALS: BP 117/73; PULSE 90; RESP 16; TEMP 99.9; O2SAT 100
[2018-01-04] MEDS ORDERED: AMOX875T PO (22:47)
--- NOTE | 2018-01-04 22:52 | PD ---
HPI Chief Complaint: Oral / Dental Pain or Problem Time Seen by Provider: 22:41 Travel History International Travel<30 days: No Contact w/Intl Traveler<30days: No Traveled to known affect area: No History of Present Illness HPI 22-year-old white female 7 months presents to emergency Department with complaints of dental pain and facial swelling over last few days. She states that she has had a cavity that has caused her face to be swollen. Symptoms are [id number]. No fever chills. No nausea vomiting. No abdominal pain. No urinary symptoms. No leakage of fluid or vaginal bleeding. She states that the baby has been moving normally. No alleviating factors. No exacerbating factors. PFSH Past Medical History Narrative Medical Asthma, Anemia: Yes Asthma: Yes Diminished Hearing: No Respiratory: Yes Immunizations Current: Yes Tetanus Vaccination: < 5 Years ?: LMP: 04/2018 : 5 Para: 1 Miscarriage: 0 : 3 Dilation and Curettage (D&C): Yes Past Surgical History Surgical History: No Previous Surgery Social History Alcohol Use: No Tobacco Use: Yes Substance Use: No Allergies-Medications (Allergen,Severity, Reaction): Coded Allergies: bee venom protein (honey bee) (Unverified Allergy, Severe, ANAPHYLAXIS, ) anaphylaxis gluten (Unverified Allergy, Severe, THROAT SWELLS, 01/04/18) wheat (Unverified Allergy, Severe, AIRWAY ISSUES, 01/04/18) breathing probs Reported Meds & Prescriptions Reported Meds & Active Scripts Active Amoxicillin 875 Mg Tab 875 Mg PO BID 10 Days Anusol-Hc Rectal (Hydrocortisone Rectal) 2.5% Cream 1 Applic RECTAL TID 7 Days Review of Systems Except as stated in HPI: all other systems reviewed are Neg Physical Exam Narrative GENERAL: Well-developed, well-nourished in no acute distress. Nontoxic appearing. HEAD: Normocephalic, atraumatic. EYES: Pupils equal round and reactive. Extraocular motions intact. No scleral icterus. No injection or drainage. ENT: TMs clear without erythema. The external auditory canals clear. Nose: clear . Posterior pharynx is pink and moist. No tonsillar edema or exudate. Uvula midline. Airway patent. Patient has some mild swelling to the right buccal mucosa with a large dental carry in tooth #9. There is tenderness to percussion. No obvious abscess which can be drained. NECK: Trachea midline.Supple, nontender, moves head freely. No central bony tenderness or spasm. CARDIOVASCULAR: Regular rate and rhythm without murmurs, gallops, or rubs. RESPIRATORY: Clear to auscultation. Breath sounds equal bilaterally. No wheezes , rales, or rhonchi. GASTROINTESTINAL: Abdomen soft, non-tender, gravid. EXTREMITIES: No clubbing, cyanosis, or edema. No joint tenderness, effusion, or edema noted. BACK: Nontender without deformity or crepitance. No flank tenderness. Data Data Last Documented VS Vital Signs Date Time Temp Pulse Resp B/P (MAP) Pulse Ox O2 Delivery O2 Flow Rate FiO2 01/04/18 22:11 99.9 90 16 117/73 (88) 100 Room Air Orders Orders Amoxicillin (Trimox) (01/04/18 23:00) Acetaminophen (Tylenol) (01/04/18 23:00) Ed Discharge Order (01/04/18 22:48) MDM Medical Decision Making Medical Screen Exam Complete: Yes Emergency Medical Condition: Yes Medical Record Reviewed: Yes Differential Diagnosis MDM: Moderate Differential diagnoses: Dental abscess, dental caries, osteitis, cellulitis Narrative Course Patient is given amoxicillin 1 g by mouth. Tylenol 650 mg by mouth. This is dental abscess Diagnosis Primary Impression: dental abscess Patient Instructions: General Instructions Additional Instructions: Rest. [place] gargles. [place] oil on cotton balls. Tylenol every 4-6 hours. Amoxicillin. follow-up with a dentist as soon as possible. And return to the ER if any problems. Med/Other Pt SpecificInfo: Prescription(s) given Scripts Amoxicillin (Amoxicillin) 875 Mg Tab 875 MG PO BID for Infection for 10 Days, #20 TAB 0 Refills Prov: Bill Casillas MD 01/04/18 Disposition: 01 DISCHARGE HOME Condition: Stable Jorge Steven Jan 04, 2018 22:52
[2018-01-04] MEDS ORDERED: AMOXICILLIN (TRIHYDRATE) 500 MG CAP PO ONE (23:00)
[2018-01-04] MEDS ORDERED: ACETAMINOPHEN 325 MG TAB PO ONE (23:00)
== END 2018-01-04 23:08 | disposition home or self-care (01) ==
LOC: NEPK 22:06
DX: O98.813 Other maternal infectious and parasitic diseases complicating pregnancy, third trimester (principal); K04.7 Periapical abscess without sinus; O99.513 Diseases of the respiratory system complicating pregnancy, third trimester; J45.909 Unspecified asthma, uncomplicated; O99.333 Smoking (tobacco) complicating pregnancy, third trimester
CPT/HCPCS: 99283

== ENCOUNTER 2018-02-27 07:35 | Inpatient (IN) | payer MEDICAID ==
[~2018-02-27] VITALS: Ht 162.6 cm; Wt 68.0 kg
[2018-02-27] VITALS (32 sets, daily range): BP systolic 108–134; BP diastolic 61–90; PULSE 70–93; RESP 16–18; TEMP 97.9–98.8; O2SAT 96–100
[~2018-02-27 07:35] MED LIST changes: +AMOX875T PO
--- NOTE | 2018-02-27 08:06 | PD ---
HPI Chief Complaint Contractions Date Seen: February 27, 2018 Travel History International Travel<30 Days: No Contact w/Intl Traveler<30Days: No Known Affected Area: No History of Present Illness HPI The patient is a 22 year old at 40/0 weeks gestation based on a POC ultrasound done here on 09/12 that showed EDC of 02/27/2018, patient with no care, presents due to contractions. Patient is a poor historian. She is unsure when her contractions may have started. Her boyfriend states possibly around 03:00 this morning. Patient denies any leakage or gush of fluid. Endorses + movements. She otherwise does not report any complaints. Para: 1 : 5 History Past Medical History Narrative Medical Asthma, mild intermittent for which she uses her mother's rescue inhaler as needed, infrequent use Obstetric History Obstetric History One vaginal delivery and 3 elective abortions Previous vaginal delivery complicated by hemorrhage Past Surgical History Narrative Surgical D&Cs for the abortions Family History Family History: Negative Social History Narrative Social History Patient admits to smoking 4-5 cigarettes daily throughout the She denies any etoh intake or substance use Alcohol Use: No Tobacco Use: Yes Substance Abuse: No Allergies-Medications (Allergen,Severity, Reaction): Coded Allergies: bee venom protein (honey bee) (Unverified Allergy, Severe, ANAPHYLAXIS, ) anaphylaxis gluten (Unverified Allergy, Severe, THROAT SWELLS, 01/04/18) wheat (Unverified Allergy, Severe, AIRWAY ISSUES, 01/04/18) breathing probs Home Meds Active Scripts Amoxicillin (Amoxicillin) 875 Mg Tab, 875 MG PO BID for Infection for 10 Days, # 20 TAB 0 Refills Prov:Bill Casillas MD 01/04/18 Hydrocortisone Rectal (Anusol-Hc Rectal) 2.5% Cream, 1 APPLIC RECTAL TID for Pain Management for 7 Days, #30 GM 0 Refills Prov:Zeyad Mahoney MD 09/12/17 Review of Systems Except as stated in HPI: all other systems reviewed are Neg Physical Exam Narrative GENERAL: Well-nourished, well-developed patient. SKIN: Warm and dry. HEAD: Normocephalic and atraumatic. EYES: No scleral icterus. No injection or drainage. ENT: No nasal drainage noted. Mucous membranes pink. Airway patent. NECK: Supple, trachea midline. No JVD. CARDIOVASCULAR: Regular rate and rhythm without murmurs, gallops, or rubs. RESPIRATORY: Breath sounds equal bilaterally. No accessory muscle use. ABDOMEN/GI: Abdomen soft, non-tender, bowel sounds present, no rebound, no guarding Gravid to 40 weeks size GENITOURINARY: External Genitalia: intact and normal in appearance Cervix: midposition Dilatation: 3 Effacement: 90% Station: -2 Presentation: vertex Membranes: [-] Uterine Contractions: q2-3 minutes FHT's: Category: I Baseline: 140s Reactive: +accels Variability: moderate Decels: none noted EXTREMITIES: No cyanosis or edema. BACK: Nontender without obvious deformity. No CVA tenderness. NEUROLOGICAL: Awake and alert. Motor and sensory grossly within normal limits. Normal speech. Data Data Vital Signs Reviewed: Yes [facility] Medical Record Reviewed: Yes Plan 22 year old at 40/0 weeks gestation based on an ultrasound done here on presents with painful contractions. 1. IUP - Will admit to L&D - Cervix noted to make change, repeat cervical exam at /-2 - Category I tracing - Contractions q2-3 minutes on tocometer - Obtain labs, rapid GBS - Patient desiring epidural - Continue expectant management dw Rosendo Quiles MD R2 February 27, 2018 08:06
[2018-02-27 09:09] LABS: AMORPHOUS SEDIMENT, URINE FEW; BACTERIA, URINE RARE /hpf; BILIRUBIN, URINE NEG (NEG); BLOOD, URINE NEG (NEG); GLUCOSE,URINE NEG (NEG); KETONE, URINE NEG (NEG); MUCUS URINE FEW /lpf (OCC); NITRITE,URINE NEG (NEG); RENAL EPITHELIAL CELLS <1 /hpf; SQUAMOUS EPITHELIAL CELL URINE 8 /hpf (0-5); URINE COLOR YELLOW (YELLW/STRAW); URINE LEUKOCYTE ESTERASE MOD (NEG)
[2018-02-27] MEDS ORDERED: LACTATED RINGER'S 1000 ML INJ 1,000 ML IV PRN (09:23)
[2018-02-27] MEDS ORDERED: OXYTOCIN 30 UNITS-500ML PREMIX 500 ML IV ONE ×2 (09:30→15:45)
[2018-02-27] MEDS ORDERED: SODIUM CHLORID 0.9% 500 ML INJ 500 ML IV PRN (09:30)
[2018-02-27] MEDS ORDERED: CITRIC ACID-SODIUM CITRATE LIQ 30 ML UDC PO SCH (09:30)
[2018-02-27] MEDS ORDERED: LACTATED RINGER'S 1000 ML INJ 1,000 ML IV SCH (09:30)
[2018-02-27] MEDS ORDERED: LIDOCAINE HCL 1% 50 ML VIAL I-DERMAL PRN (09:30)
[2018-02-27] MEDS ORDERED: LIDOCAINE HCL 1% 50 ML VIAL INFIL PRN (09:30)
[2018-02-27] MEDS ORDERED: MINERAL OIL 10 ML VIAL TOPICAL PRN (09:30)
[2018-02-27] MEDS ORDERED: SODIUM CHLOR 0.9% 1000 ML INJ 1,000 ML IV PRN (09:43)
[2018-02-27] MEDS ORDERED: fentaNYL 2MCG-BUPIV 0.125% INJ 100 ML ONE (10:00)
[2018-02-27 10:23] LABS: AUTOMATED NEUTROPHIL # 9.4 TH/MM3 (1.8-7.7); BASOPHIL % 0.3 % (0.0-2.0); EOSINOPHIL # 0.2 TH/MM3 (0-0.4); EOSINOPHIL % 1.3 % (0.0-4.0); HEMATOCRIT 35.1 % (35.0-46.0); HEMOGLOBIN 11.2 GM/DL (11.6-15.3); LYMPH % 16.7 % (9.0-44.0); LYMPHOCYTE # 2.2 TH/MM3 (1.0-4.8); MEAN CELL VOLUME 74.5 FL (80.0-100.0); MEAN CORPUSCULAR HEMOGLOBIN 23.8 PG (27.0-34.0); MEAN CORPUSCULAR HGB CONC 31.9 % (32.0-36.0); MEAN PLATELET VOLUME 8.9 FL (7.0-11.0); MONO % 9.1 % (0.0-8.0); MONOCYTE # 1.2 TH/MM3 (0-0.9); NEUT % 72.6 % (16.0-70.0); PLATELET COUNT 203 TH/MM3 (150-450); RED BLOOD COUNT 4.71 MIL/MM3 (4.00-5.30); RED CELL DISTRIBUTION WIDTH 17.8 % (11.6-17.2); WHITE BLOOD COUNT 12.9 TH/MM3 (4.0-11.0)
--- NOTE | 2018-02-27 10:27 | HHI.HP ---
History & Physical H&P HPI HPI Chief Complaint Contractions Date Seen: February 27, 2018 Travel History International Travel<30 Days: No Contact w/Intl Traveler<30Days: No Known Affected Area: No History of Present Illness HPI The patient is a 22 year old at 40/0 weeks gestation based on a POC ultrasound done here on 09/12 that showed EDC of 02/27/2018, patient with no care, presents due to contractions. Patient is a poor historian. She is unsure when her contractions may have started. Her boyfriend states possibly around 03:00 this morning. Patient denies any leakage or gush of fluid. Endorses + movements. She otherwise does not report any complaints. Para: 1 : 5 History (Limited) History Past Medical History Narrative Medical Asthma, mild intermittent for which she uses her mother's rescue inhaler as needed, infrequent use Obstetric History Obstetric History One vaginal delivery and 3 elective abortions Previous vaginal delivery complicated by hemorrhage Past Surgical History Narrative Surgical D&Cs for the abortions Family History Family History: Negative Social History Narrative Social History Patient admits to smoking 4-5 cigarettes daily throughout the She denies any etoh intake or substance use Alcohol Use: No Tobacco Use: Yes Substance Abuse: No Allergies-Medications Allergies-Medications (Allergen,Severity, Reaction): Coded Allergies: bee venom protein (honey bee) (Unverified Allergy, Severe, ANAPHYLAXIS, ) anaphylaxis gluten (Unverified Allergy, Severe, THROAT SWELLS, 01/04/18) wheat (Unverified Allergy, Severe, AIRWAY ISSUES, 01/04/18) breathing probs Home Meds Active Scripts Amoxicillin (Amoxicillin) 875 Mg Tab, 875 MG PO BID for Infection for 10 Days, # 20 TAB 0 Refills Prov:Bill Casillas MD 01/04/18 Hydrocortisone Rectal (Anusol-Hc Rectal) 2.5% Cream, 1 APPLIC RECTAL TID for Pain Management for 7 Days, #30 GM 0 Refills Prov:Zeyad Mahoney MD 09/12/17 ROS Review of Systems Except as stated in HPI: all other systems reviewed are Neg Physical Exam Physical Exam Narrative GENERAL: Well-nourished, well-developed patient. SKIN: Warm and dry. HEAD: Normocephalic and atraumatic. EYES: No scleral icterus. No injection or drainage. ENT: No nasal drainage noted. Mucous membranes pink. Airway patent. NECK: Supple, trachea midline. No JVD. CARDIOVASCULAR: Regular rate and rhythm without murmurs, gallops, or rubs. RESPIRATORY: Breath sounds equal bilaterally. No accessory muscle use. ABDOMEN/GI: Abdomen soft, non-tender, bowel sounds present, no rebound, no guarding Gravid to 40 weeks size GENITOURINARY: External Genitalia: intact and normal in appearance Cervix: midposition Dilatation: 3 Effacement: 90% Station: -2 Presentation: vertex Membranes: [-] Uterine Contractions: q2-3 minutes FHT's: Category: I Baseline: 140s Reactive: +accels Variability: moderate Decels: none noted EXTREMITIES: No cyanosis or edema. BACK: Nontender without obvious deformity. No CVA tenderness. NEUROLOGICAL: Awake and alert. Motor and sensory grossly within normal limits. Normal speech. Data Data Data Vital Signs Reviewed: Yes MDM MDM Medical Record Reviewed: Yes Plan 22 year old at 40/0 weeks gestation based on an ultrasound done here on presents with painful contractions. 1. IUP - Will admit to L&D - Cervix noted to make change, repeat cervical exam at /-2 - Category I tracing - Contractions q2-3 minutes on tocometer - Obtain labs, rapid GBS - Patient desiring epidural - Continue expectant management Rosendo Palmer Dr., MD R2 February 27, 2018 10:27
[2018-02-27] MEDS ORDERED: LIDOCAINE 1.5%/EPINEPHrine 1:200,000 PF 5 ML AMP ONE (10:31)
--- NOTE | 2018-02-27 12:22 | PD.LABORPN ---
Subjective Subjective Patient lying in bed. Discussed with patient proceeding with AROM. AROM performed without complication and noted to have clear fluids. Objective Vital Signs Vital Signs Date Time Temp Pulse Resp B/P (MAP) Pulse Ox O2 Delivery O2 Flow Rate FiO2 02/27/18 11:45 97.9 02/27/18 11:30 93 125/84 (98) 02/27/18 11:15 78 124/76 (92) 02/27/18 11:10 75 116/71 (86) 02/27/18 11:05 78 121/81 (94) 02/27/18 11:00 75 119/80 (93) 02/27/18 10:55 70 126/71 (89) 02/27/18 10:55 76 02/27/18 10:50 80 02/27/18 10:50 73 118/77 (91) 02/27/18 10:45 18 02/27/18 10:45 74 02/27/18 10:45 75 121/90 (100) 02/27/18 10:40 73 134/82 (99) 99 02/27/18 10:37 74 114/79 (91) 02/27/18 10:35 75 100 02/27/18 09:38 72 125/87 (100) Objective Pelvic Exam: Cervix: anterior Dilatation: 6 Effacement: 100 Station: -2 Presentation: vertex Membranes: ruptured Uterine Contractions: q2-3 minutes FHT's: Category: II Baseline: 150s Reactive: +accels Variability: moderate Decels: infrequent variable decels Assessment/Plan Assessment and Plan 22 year old at 40/0 weeks gestation based on an ultrasound done here on presents with painful contractions. 1. IUP - Cervix: 6/100/-2 - Category II tracing, FHT noted to have poor variability, following AROM FHT with moderate variability and +accels. - Contractions q2-3 minutes on tocometer - s/p AROM, clear fluids - Obtain labs, rapid GBS - Epidural in place - Continue expectant management dw Rosendo Gallegos MD R2 February 27, 2018 12:22
--- NOTE | 2018-02-27 13:06 | HHI.PR ---
Subjective Remarks OB Attending Upon assuming care for the patient I spoke with the patient discussed the risks of as well as the risks, benefits, and alternatives to delivery. We discussed the indications of delivery. We discussed that our goals healthy followed by vaginal delivery. The patient's labor has progressed to 6 cm, however the tracing appears to have decreased long-term variability and a couple possible subtle late appearing decelerations. Patient was examined and noted to be 6/complete/-1. The patient's membranes spontaneously ruptured during examination with copious clear fluid. At this point variability increased and heart rate tracing appeared to be reassuring with moderate long-term variability, good accelerations, no decelerations noted. Will continue close monitoring and expectant management. Objective Vital Signs Date Time Temp Pulse Resp B/P (MAP) Pulse Ox O2 Delivery O2 Flow Rate FiO2 02/27/18 12:00 84 113/75 (88) 02/27/18 11:46 85 109/64 (79) 02/27/18 11:45 97.9 02/27/18 11:30 93 125/84 (98) 02/27/18 11:15 78 124/76 (92) 02/27/18 11:10 75 116/71 (86) 02/27/18 11:05 78 121/81 (94) 02/27/18 11:00 75 119/80 (93) 02/27/18 10:55 70 126/71 (89) 02/27/18 10:55 76 02/27/18 10:50 80 02/27/18 10:50 73 118/77 (91) 02/27/18 10:45 18 02/27/18 10:45 74 02/27/18 10:45 75 121/90 (100) 02/27/18 10:40 73 134/82 (99) 99 02/27/18 10:37 74 114/79 (91) 02/27/18 10:35 75 100 02/27/18 09:38 72 125/87 (100) Result Diagram: 02/27/18 0945 Arelis Hayes MD February 27, 2018 13:06
--- NOTE | 2018-02-27 13:58 | PD.OB.DELI ---
Artificial rupture of membrane: Yes Anesthesia: Epidural Episiotomy: None Vaginal Delivery: Normal, Spontaneous Presentation: Occiput posterior Nuchal Cord: None Delayed cord clamping (45 sec): Yes Infant: Female Delivery date: February 27, 2018 Delivery time: 13:39 One Minute : 9 Five Minute : 9 Weight: 3245 grams Placenta: Spontaneous delivery, Intact, 3 vessel cord Laceration: Vaginal laceration Repair: Vicryl interrupted Estimated blood loss: 250 cc Additional Information 22 year old now delivered via over an intact perineum. Apgars 9/9 at 1/ 5 minutes respectively. Placenta delivered spontaneously, intact with 3-vessel cord. Small ~1.5 cm right side wall tear repaired using Vicryl suture. EBL 250 cc. oRsendo Witt MD R2 February 27, 2018 13:58
--- NOTE | 2018-02-27 14:05 | HHI.PR ---
Subjective Remarks OB Attending The patient progressed to complete/complete/+1-+2 station. She commence spontaneous maternal expulsive efforts with reassuring heart tones throughout. The head delivered in the OP position and after appropriate restitution the anterior shoulder was delivered without difficulty. Remainder of the delivered without difficulty and was placed on the maternal abdomen. The was stimulated and was vigorous with Apgars 9/9. Cord clamp was delayed until 45 seconds after which the cord was doubly clamped and cut. Cord blood was obtained from the nursery. The placenta was delivered spontaneously. The placenta appeared to be intact. A first-degree right labial laceration was noted and reapproximated with interrupted 4-0 Vicryl. Excellent cosmesis and hemostasis was noted. Mother are both doing well. Objective Vital Signs Date Time Temp Pulse Resp B/P (MAP) Pulse Ox O2 Delivery O2 Flow Rate FiO2 02/27/18 13:00 84 108/76 (87) 02/27/18 12:00 84 113/75 (88) 02/27/18 11:46 85 109/64 (79) 02/27/18 11:45 97.9 02/27/18 11:30 93 125/84 (98) 02/27/18 11:15 78 124/76 (92) 02/27/18 11:10 75 116/71 (86) 02/27/18 11:05 78 121/81 (94) 02/27/18 11:00 75 119/80 (93) 02/27/18 10:55 70 126/71 (89) 02/27/18 10:55 76 02/27/18 10:50 80 02/27/18 10:50 73 118/77 (91) 02/27/18 10:45 18 02/27/18 10:45 74 02/27/18 10:45 75 121/90 (100) 02/27/18 10:40 73 134/82 (99) 99 02/27/18 10:37 74 114/79 (91) 02/27/18 10:35 75 100 02/27/18 09:38 72 125/87 (100) Result Diagram: 02/27/18 0945 Arelis Hayes MD February 27, 2018 14:05
[2018-02-27] MEDS ORDERED: MISOPROSTOL 200 MCG TAB RECTAL PRN (14:30)
[2018-02-27] MEDS ORDERED: fentaNYL 2MCG-BUPIV 0.125% 100 ML EPIDURAL PRN (15:30)
[2018-02-27] MEDS ORDERED: DO NOT ADMINISTER ANTICOAGULANTS PRN (15:30)
[2018-02-27] MEDS ORDERED: NO SYSTEM NARCOTICS PRN (15:30)
[2018-02-27] MEDS ORDERED: ePHEDrine/NS 25 MG/5 ML SYRINGE IV PUSH PRN (15:30)
[2018-02-27] MEDS ORDERED: DIPHTH/TETANUS/ACEL PERTUSSIS (BOOSTER) 0.5 ML VIAL/PFS IM ONE (19:45)
[2018-02-28] MEDS ORDERED: OXYTOCIN 30 UNITS-500ML PREMIX 500 ML IV SCH (02:30)
[2018-02-28] MEDS ORDERED: BENZOCAINE 20% TOPICAL SPRAY 60 ML CAN TOPICAL PRN (02:30)
[2018-02-28] MEDS ORDERED: SODIUM CHLORIDE 0.9% FLUSH 10 ML FLUSH IV FLUSH PRN (02:30)
[2018-02-28] MEDS ORDERED: WITCH HAZEL 50%/GLYCERIN 12.5% 40 PAD JAR TOPICAL PRN (02:30)
[2018-02-28] MEDS ORDERED: ZOLPIDEM TARTRATE 5 MG TAB PO PRN (02:30)
[2018-02-28] MEDS ORDERED: ONDANSETRON ODT 4 MG TAB PO PRN (02:30)
[2018-02-28] MEDS ORDERED: ALUMINUM/MAGNESIUM/SIMETH 30 ML CUP PO PRN (02:30)
[2018-02-28] MEDS ORDERED: DOCUSATE SODIUM 50 MG/SENNA 8.6 MG TAB PO PRN (02:30)
[2018-02-28] MEDS: ACETAMINOPHEN 325 MG TAB PO PRN ×2 (02:31→20:31)
[2018-02-28] MEDS: IBUPROFEN 800 MG TAB PO PRN ×2 (02:31→20:31)
[2018-02-28] MEDS ORDERED: SODIUM CHLORIDE 0.9% FLUSH 10 ML FLUSH IV FLUSH SCH (09:00)
--- NOTE | 2018-02-28 09:37 | HHI.OB ---
Subjective Post Day: 1 Remarks Patient seen and examined this morning. AFVSS overnight. day #1. Pain well-controlled. Decreased lochia. Denies dysuria. No breast tenderness. She is feeding the baby via breast. Appetite good. No nausea or vomiting. Positive flatus. Positive bowel movement. Ambulating well. Denies calf pain, shortness of breath, or cough. She otherwise has no other complaints or concerns this morning. Objective Vitals/I&O Vital Signs Date Time Temp Pulse Resp B/P (MAP) Pulse Ox O2 Delivery O2 Flow Rate FiO2 02/27/18 20:00 98.1 02/27/18 20:00 18 96 02/27/18 20:00 81 116/66 (83) 02/27/18 16:15 98.8 18 02/27/18 16:15 76 111/69 (83) 02/27/18 15:15 83 100 02/27/18 15:10 79 99 02/27/18 15:05 72 99 02/27/18 15:00 76 119/81 (94) 99 02/27/18 15:00 79 02/27/18 14:55 75 97 02/27/18 14:50 79 98 02/27/18 14:45 80 120/61 (80) 02/27/18 14:45 99 02/27/18 14:40 98 02/27/18 14:40 81 02/27/18 14:30 86 124/67 (86) 02/27/18 14:15 84 117/70 (86) 02/27/18 14:07 98.2 02/27/18 14:07 16 02/27/18 14:05 18 02/27/18 14:03 88 122/80 (94) 02/27/18 14:00 88 125/66 (85) 02/27/18 13:00 84 108/76 (87) 02/27/18 12:00 84 113/75 (88) 02/27/18 11:46 85 109/64 (79) 02/27/18 11:45 97.9 02/27/18 11:30 93 125/84 (98) 02/27/18 11:15 78 124/76 (92) 02/27/18 11:10 75 116/71 (86) 02/27/18 11:05 78 121/81 (94) 02/27/18 11:00 75 119/80 (93) 02/27/18 10:55 70 126/71 (89) 02/27/18 10:55 76 02/27/18 10:50 80 02/27/18 10:50 73 118/77 (91) 02/27/18 10:45 18 02/27/18 10:45 18 02/27/18 10:45 74 02/27/18 10:45 75 121/90 (100) 02/27/18 10:40 73 134/82 (99) 99 02/27/18 10:37 74 114/79 (91) 02/27/18 10:35 75 100 02/27/18 09:38 72 125/87 (100) Objective Remarks GENERAL: Well-nourished, well-developed patient. CARDIOVASCULAR: Regular rate and rhythm without murmurs, gallops, or rubs. RESPIRATORY: Breath sounds equal bilaterally. No accessory muscle use. ABDOMEN/GI: Abdomen soft, non-tender. Fundus: Firm, non-tender at umbilicus. GENITOURINARY: Light to moderate bleeding. EXTREMITIES: No cyanosis or edema, non-tender, without signs of DVT. Medications and IVs Current Medications Medications (Trade) Dose Ordered Sig/Regis Route Start Time Stop Time Status Last Admin [place] [place] [facility] No systemic narcotics to be given except... UNSCH PRN .XX 02/27/18 15:30 02/28/18 15:29 [place] [place] [facility] [place] DO NOT ADMINISTER ANY ANTICOAGUL... UNSCH PRN .XX 02/27/18 15:30 02/28/18 15:29 (NS Flush) 2 ml BID IV FLUSH 02/28/18 09:00 (NS Flush) 2 ml UNSCH PRN IV FLUSH 02/28/18 02:30 (Tylenol) 650 mg Q4H PRN PO 02/28/18 02:30 02/28/18 02:31 (Motrin) 800 mg Q8H PRN PO 02/28/18 02:30 02/28/18 02:31 (Americaine 20% Top Spr) 1 spray Q4H PRN TOPICAL 02/28/18 02:30 (Tucks Pads) 1 applic QID PRN TOPICAL 02/28/18 02:30 (Payton-Colace) 2 tab Q12H PRN PO 02/28/18 02:30 (Ambien) 5 mg HS PRN PO 02/28/18 02:30 (M-M-R Ii Inj) 0.5 ml ONCE ONCE SQ 02/28/18 16:00 02/28/18 16:01 (Boostrix Inj) 0.5 ml ONCE ONCE IM 02/28/18 16:00 02/28/18 16:01 (Mag-Al Plus Susp Liq) 15 ml Q8H PRN PO 02/28/18 02:30 (Zofran Odt) 4 mg Q6H PRN PO 02/28/18 02:30 Assessment/Plan Problem List: (1) 40 weeks gestation of ICD Codes: Z3A.40 - 40 weeks gestation of Plan: 22 year old G 5 p 2 PPD#1. 1. Care - AFVSS - Encouraged OOB, as tolerated - Motrin prn pain - Advised pelvic rest x 6 weeks - Breast feeding - Contraception: Patient interested in getting the Depo-Provera shot for contraception before discharge - Will f/u with OB provider in 6 weeks Discharge Planning Plan for discharge tomorrow David Monzon MD, R1 February 28, 2018 09:37
[2018-02-28] MEDS ORDERED: medroxyPROGESTERone ACETATE SUSP 150 MG/ML SYRINGE IM ONE (09:45)
[2018-02-28] MEDS ORDERED: DIPHTH/TETANUS/ACEL PERTUSSIS (BOOSTER) 0.5 ML VIAL/PFS IM ONE (16:00)
[2018-02-28] MEDS ORDERED: MEASLES, MUMPS, RUBELLA VACCINE 0.5 ML VIAL SQ ONE (16:00)
[2018-02-28 21:06] VITALS: BP 104/67; PULSE 72; RESP 18; TEMP 98.3
[2018-03-01 07:45] VITALS: BP 116/82; PULSE 78; RESP 16; TEMP 98.3
--- NOTE | 2018-03-01 08:31 | HHI.OB ---
Subjective Post Day: 2 Remarks Patient seen and examined this morning. AFVSS overnight. day #2. Patient reports no pain. Decreased lochia. Denies dysuria. No breast tenderness. She is feeding the baby via bottle and breast. Appetite good. No nausea or vomiting. Positive flatus. Positive bowel movement. Ambulating well. Denies calf pain, shortness of breath, or cough. She otherwise has no other complaints or concerns this morning. Objective Vitals/I&O Vital Signs Date Time Temp Pulse Resp B/P (MAP) Pulse Ox O2 Delivery O2 Flow Rate FiO2 03/01/18 07:45 78 16 116/82 (93) 03/01/18 07:45 98.3 02/28/18 21:06 98.3 72 18 104/67 (79) Objective Remarks GENERAL: Well-nourished, well-developed patient. CARDIOVASCULAR: Regular rate and rhythm without murmurs, gallops, or rubs. RESPIRATORY: Breath sounds equal bilaterally. No accessory muscle use. ABDOMEN/GI: Abdomen soft, non-tender. Fundus: Firm, non-tender at umbilicus. GENITOURINARY: Light bleeding. EXTREMITIES: No cyanosis or edema, non-tender, without signs of DVT. Medications and IVs Current Medications Medications (Trade) Dose Ordered Sig/Regis Route Start Time Stop Time Status Last Admin (NS Flush) 2 ml BID IV FLUSH 02/28/18 09:00 (NS Flush) 2 ml UNSCH PRN IV FLUSH 02/28/18 02:30 (Tylenol) 650 mg Q4H PRN PO 02/28/18 02:30 02/28/18 20:31 (Motrin) 800 mg Q8H PRN PO 02/28/18 02:30 02/28/18 20:31 (Americaine 20% Top Spr) 1 spray Q4H PRN TOPICAL 02/28/18 02:30 02/28/18 20:33 (Tucks Pads) 1 applic QID PRN TOPICAL 02/28/18 02:30 02/28/18 20:33 (Payton-Colace) 2 tab Q12H PRN PO 02/28/18 02:30 02/28/18 20:30 (Ambien) 5 mg HS PRN PO 02/28/18 02:30 (Mag-Al Plus Susp Liq) 15 ml Q8H PRN PO 02/28/18 02:30 (Zofran Odt) 4 mg Q6H PRN PO 02/28/18 02:30 Assessment/Plan Problem List: (1) 40 weeks gestation of ICD Codes: Z3A.40 - 40 weeks gestation of Plan: 22 year old G 5 p 2 PPD#2. 1. Care - AFVSS - Encouraged OOB, as tolerated - Motrin prn pain - Advised pelvic rest x 6 weeks - Breast feeding - Contraception: s/p Depo-Provera shot for contraception yesterday - Will f/u with OB provider in 6 weeks Discharge Planning Plan for discharge today David Monzon MD, R1 March 01, 2018 08:31
[2018-03-01] MEDS ORDERED: IBUP1TAB7 PO (08:33)
--- NOTE | 2018-03-01 09:13 | HHI.DCPOC ---
Discharge Care Plan Diagnosis: (1) 40 weeks gestation of Goals to Promote Your Health * To prevent worsening of your condition and complications * To maintain your health at the optimal level Directions to Meet Your Goals Take your medications as prescribed Follow your dietary instruction Follow activity as directed Keep your appointments as scheduled Take your immunizations and boosters as scheduled If your symptoms worsen call your PCP, if no PCP go to Urgent Care Center or Emergency Room Smoking is Dangerous to Your Health. Avoid second hand smoke Call the 24-hour hour crisis hotline for domestic abuse at David Monzon MD, R1 March 01, 2018 09:13
== END 2018-03-01 12:14 | disposition home or self-care (01) | DRG 775 ==
LOC: HOBED 07:35 → H2EA 09:28 → H1EA 15:50
PROVIDERS: ADMIT Obstetrics & Gynecology Obstetrics; ATTEND Obstetrics & Gynecology Obstetrics
PROC: 10E0XZZ Delivery of Products of Conception, External Approach (ICD-10-PCS; principal; 2018-02-27)
PROC: 10907ZC Drainage of Amniotic Fluid, Therapeutic from Products of Conception, Via Natural or Artificial Opening (ICD-10-PCS; 2018-02-27)
PROC: 0UQMXZZ Repair Vulva, External Approach (ICD-10-PCS; 2018-02-27)
PROC: 00HU33Z Insertion of Infusion Device into Spinal Canal, Percutaneous Approach (ICD-10-PCS; 2018-02-27)
PROC: 3E0R3BZ Introduction of Anesthetic Agent into Spinal Canal, Percutaneous Approach (ICD-10-PCS; 2018-02-27)
DX: O99.334 Smoking (tobacco) complicating childbirth (principal); F17.210 Nicotine dependence, cigarettes, uncomplicated; O71.82 Other specified trauma to perineum and vulva; Z3A.40 40 weeks gestation of pregnancy; Z37.0 Single live birth
CPT/HCPCS: 59025; 80074; 80307; 81001; 85025; 86592; 86703; 86762; 87081; 87150; 90715; G0481; J1050; J2590; J3010; J7120